=== PATIENT | female | born 1950 | race American Indian/Alaskan Native ===

== ENCOUNTER 2020-08-21 15:29 | Emergency (ER) | payer MEDICARE ==
--- NOTE | 2020-08-21 16:35 | Emergency Department Report ---
ED General Adult HPI - General Chief complaint: Psych Stated complaint: PSYCH EVAL PUI?: No Time Seen by Provider: 08/21/20 16:12 Source: patient, EMS ( EMS documentation not available at time of chart dictation ), RN notes reviewed Mode of arrival: Ambulatory Limitations: Other (The patient is a poor historian) - History of Present Illness Initial comments: The patient was evaluated in the emergency department for symptoms described in the history of present illness. He/she was evaluated in the context of the global COVID-19 pandemic, which necessitated consideration that the patient might be at risk for infection with the virus that causes COVID-19. Institutional protocols and algorithms that pertain to the evaluation of patients at risk for COVID-19 are in a state of rapid change based on information released by regulatory bodies including the CDC and federal and state organizations. These policies and algorithms were followed during the patient's care in the emergency department. Please note that these policies, procedures and recommendations changed on a rapid basis. The patient is a 69-year-old female. She is not known to myself previously. The patient is brought to the hospital by emergency medical services from a local personal fpc. Apparently, the patient ran out of her psychiatric prescriptions a few days ago, and as per verbal report from nursing team, was demonstrating aggressive b ehavior at her personal fpc. She was thus sent to this emergency room. At the moment, patient is not accompanied by friends or family for additional information or collateral information. The patient herself denies headache, neck pain, chest pain, abdominal pain, shortness of breath. She endorses bilateral knee pain, and lower extremity swelling which is nontraumatic, which has been present for "a long time." She denies travel, surgery and immobilization. She indicates the pain is aching, increases with palpation and range of motion and it decreases with rest. She has no recollection of the aforementioned events. To me, the patient complains of wanting to eat and drink, and of her chronic knee pain. Location: left, right, lower extremity Radiation: other Quality: other Consistency: other Improves with: other Worsens with: other Associated Symptoms: other Treatments Prior to Arrival: other - Related Data Home Medications Medication Instructions Recorded Confirmed Last Taken Benztropine [Cogentin] 1 mg PO BID 08/21/20 08/21/20 Unknown Melatonin [Melatonin 10MG CAP] 10 mg PO QHS 10/03/20 10/03/20 Unknown OLANZapine [Zyprexa] 5 mg PO DAILY 08/21/20 08/21/20 Unknown risperiDONE [RisperDAL] 2 mg PO DAILY 08/21/20 08/21/20 Unknown traZODone [Desyrel] 50 mg PO QHS 08/21/20 08/21/20 Unknown Allergies Allergy/AdvReac Type Severity Reaction Status Date / Time Penicillins Allergy Anaphylaxis Verified 08/21/20 15:37 ED Review of Systems ROS: Stated complaint: PSYCH EVAL Other details as noted in HPI Constitutional: denies: fever Eyes: denies: eye discharge ENT: denies: epistaxis Respiratory: denies: cough, shortness of breath Cardiovascular: denies: chest pain Gastrointestinal: denies: abdominal pain, hematemesis, melena, hematochezia Genitourinary: denies: dysuria Musculoskeletal: arthralgia, myalgia Neurological: denies: weakness Psychiatric: denies: homicidal thoughts, suicidal thoughts ED Past Medical Hx - Past Medical History Previous Medical History?: Yes Hx Psychiatric Treatment: Yes (BIPOLAR) - Surgical History Past Surgical History?: No - Social History Smoking Status: Never Smoker Substance Use Type: None - Medications Home Medications: Home Medications Medication Instructions Recorded Confirmed Last Taken Type Benztropine [Cogentin] 1 mg PO BID 08/21/20 08/21/20 Unknown History Melatonin [Melatonin 10MG CAP] 10 mg PO QHS 08/21/20 08/21/20 Unknown History OLANZapine [Zyprexa] 5 mg PO DAILY 08/21/20 08/21/20 Unknown History risperiDONE [RisperDAL] 2 mg PO DAILY 08/21/20 08/21/20 Unknown History traZODone [Desyrel] 50 mg PO QHS 08/21/20 08/21/20 Unknown History ED Physical Exam - General Limitations: No Limitations, Other (The patient is a poor historian) General appearance: alert - Head Head exam: Present: atraumatic, normocephalic - Eye Eye exam: Present: normal appearance, EOMI. Absent: nystagmus - ENT ENT exam: Present: normal exam, normal orophraynx, mucous membranes moist, normal external ear exam - Neck Neck exam: Present: normal inspection, full ROM. Absent: tenderness, meningismus - Respiratory Respiratory exam: Present: normal lung sounds bilaterally. Absent: respiratory distress, wheezes, rales, rhonchi, stridor, decreased breath sounds - Cardiovascular Cardiovascular Exam: Present: regular rate, normal rhythm, normal heart sounds. Absent: bradycardia, tachycardia, irregular rhythm, systolic murmur, diastolic murmur, rubs, gallop - GI/Abdominal GI/Abdominal exam: Present: soft. Absent: distended, tenderness, guarding, rebound, rigid, pulsatile mass - Rectal Rectal exam: Present: deferred - Extremities Exam Extremities exam: Present: normal inspection, full ROM, pedal edema (There is 1+ edema in the bilateral lower extremities), other (There is bilateral knee tenderness on the medial and lateral joint lines of both knees. 2+ pulses noted in the bilateral upper and lower extremities. The muscular compartments are soft. There is otherwise no long bony tenderness, there is no pain with passive range of motion of the toes or ankles.). Absent: calf tenderness - Back Exam Back exam: Present: normal inspection, full ROM. Absent: tenderness, CVA tenderness (R), CVA tenderness (L), paraspinal tenderness, vertebral tenderness - Neurological Exam Neurological exam: Present: alert (Patient is alert to name and location. Does not know the month or the year, "I do not pay attention to that kind of stuff."), other (No facial droop. Tongue midline. Extraocular movements intact bilaterally. Facial sensation intact to light touch in V1, V2, V3 distribution bilaterally. 5 and a 5 strength in 4 extremities. Sensation intact to light touch in 4 extremities.). Absent: motor sensory deficit - Psychiatric Psychiatric exam: Present: anxious. Absent: homicidal ideation, suicidal ideation - Skin Skin exam: Present: warm, dry, intact, normal color. Absent: rash ED Course Vital Signs 08/21/20 08/21/20 15:36 19:53 Temperature 98.0 F 97.8 F Pulse Rate 76 67 Respiratory 17 20 Rate Blood Pressure 144/72 Blood Pressure 137/72 [Left] O2 Sat by Pulse 100 99 Oximetry - Reevaluation(s) Reevaluation #1: 08/21/20 17:12 Differential diagnosis, including but not limited to: Arthritis, dependent edema, renal insufficiency, hepatic insufficiency, congestive heart failure, behavioral concern in an adult patient, medication refill, psychiatric evaluation Assessment and plan: 69-year-old female, who is afebrile with reassuring vital signs, who is alert and oriented to name and location, most likely disorganized secondary to advanced age and probable dementia, who was sent for personal fpc for medication refill of her psychiatric medications, and report of aggressive behavior. On my evaluation, the patient is pleasant, calm and cooperative, alert to name and location, and is not homicidal or suicidal. She does not present as acute crisis. However, given the reports of aggressive behavior, a psychiatric consultation will be obtained. In terms of her leg pain and leg swelling, this is most likely dependent edema, with the knee arthritis. She is not currently tachycardic, tachypneic or hypoxic, she denies DVT and pulmonary embolism risk factors, her d-dimer is negative. Screening laboratory studies ordered, x-ray of the chest negative for CHF, x-ray of the bilateral knees negative for significant findings except arthritis, remainder of screening laboratory studies and psychiatric consultation are pending at this time Reevaluation #2: 08/21/20 17:30 Laboratory studies unremarkable at this time. Psychiatric consultation is pending at this time. Patient does not have an emergent medical condition at this time that would preclude discharge, or outpatient psychiatric follow-up. Please note that it is this provider's practice to not routinely prescribe psychiatric maintenance medications, we can continue them while she is in the emergency room, but she will need to follow-up with her outpatient primary care provider or psychiatrist for refills on her chronic medications 08/21/20 19:17 Patient DVT study is negative. Reevaluation #3: 08/21/20 20:39 As expected, patient has been deemed appropriate for discharge back to her correction by the psychiatric team. She has follow-up with her psychiatrist this Sunday, Dr. Jasmine Patient has been resting comfortably in her stretcher in no acute distress at this time. ED Medical Decision Making - Lab Data Result diagrams: 08/21/20 16:36 08/21/20 16:36 Vital Signs 08/21/20 15:36 Temperature 98.0 F Pulse Rate 76 Respiratory 17 Rate Blood Pressure 144/72 O2 Sat by Pulse 100 Oximetry Lab Results 08/21/20 08/21/20 08/21/20 Range/Units 13:46 16:36 16:36 WBC 6.1 (4.5-11.0) K/mm3 RBC 4.22 (3.65-5.03) M/mm3 Hgb 12.0 (11.8-15.2) gm/dl Hct 35.0 L (35.5-45.6) % MCV 83 L (84-94) fl MCH 29 (28-32) pg MCHC 34 (32-34) % RDW 16.2 H (13.2-15.2) % Plt Count 244 (140-440) K/mm3 PT 13.8 (12.2-14.9) Sec. INR 1.04 (0.87-1.13) APTT 29.7 (24.2-36.6) Sec. D-Dimer 157.50 (0-234) ng/mlDDU Urine Color Yellow (Yellow) Urine Turbidity Clear (Clear) Urine pH 5.0 (5.0-7.0) Ur Specific [place] 1.014 (1.003-1.030) Urine Protein <15 mg/dl (Negative) mg/dL Urine Glucose (UA) Neg (Negative) mg/dL Urine Ketones Neg (Negative) mg/dL Urine Blood Mod (Negative) Urine Nitrite Neg (Negative) Urine Bilirubin Neg (Negative) Urine Urobilinogen < 2.0 (<2.0) mg/dL Ur Leukocyte Esterase Tr (Negative) Urine WBC (Auto) 3.0 (0.0-6.0) /HPF Urine RBC (Auto) 6.0 (0.0-6.0) /HPF U Epithel Cells (Auto) 6.0 (0-13.0) /HPF Urine Mucus Few /HPF Plasma/Serum Alcohol (0-0.07) % 08/21/ Range/Units 16:36 WBC (4.5-11.0) K/mm3 RBC (3.65-5.03) M/mm3 Hgb (11.8-15.2) gm/dl Hct (35.5-45.6) % MCV (84-94) fl MCH (28-32) pg MCHC (32-34) % RDW (13.2-15.2) % Plt Count (140-440) K/mm3 PT (12.2-14.9) Sec. INR (0.87-1.13) APTT (24.2-36.6) Sec. D-Dimer (0-234) ng/mlDDU Urine Color (Yellow) Urine Turbidity (Clear) Urine pH (5.0-7.0) Ur Specific [place] (1.003-1.030) Urine Protein (Negative) mg/dL Urine Glucose (UA) (Negative) mg/dL Urine Ketones (Negative) mg/dL Urine Blood (Negative) Urine Nitrite (Negative) Urine Bilirubin (Negative) Urine Urobilinogen (<2.0) mg/dL Ur Leukocyte Esterase (Negative) Urine WBC (Auto) (0.0-6.0) /HPF Urine RBC (Auto) (0.0-6.0) /HPF U Epithel Cells (Auto) (0-13.0) /HPF Urine Mucus /HPF Plasma/Serum Alcohol < 0.01 (0-0.07) % Laboratory Last Values WBC 6.1 K/mm3 (4.5-11.0) 08/21/20 16:36 RBC 4.22 M/mm3 (3.65-5.03) 08/21/20 16:36 Hgb 12.0 gm/dl (11.8-15.2) 08/21/20 16:36 Hct 35.0 % (35.5-45.6) L 08/21/20 16:36 MCV 83 fl (84-94) L 08/21/20 16:36 MCH 29 pg (28-32) 08/21/20 16:36 MCHC 34 % (32-34) 08/21/20 16:36 RDW 16.2 % (13.2-15.2) H 08/21/20 16:36 Plt Count 244 K/mm3 (140-440) 08/21/20 16:36 PT 13.8 Sec. (12.2-14.9) 08/21/20 16:36 INR 1.04 (0.87-1.13) 08/21/20 16:36 APTT 29.7 Sec. (24.2-36.6) 08/21/20 16:36 D-Dimer 157.50 ng/mlDDU (0-234) 08/21/20 16:36 Sodium 139 mmol/L (137-145) 08/21/20 16:36 Potassium 4.0 mmol/L (3.6-5.0) 08/21/20 16:36 Chloride 101.3 mmol/L (98-107) 08/21/20 16:36 Carbon Dioxide 29 mmol/L (22-30) 08/21/20 16:36 Anion Gap 13 mmol/L 08/21/20 16:36 BUN 19 mg/dL (9-20) 08/21/20 16:36 Creatinine 0.6 mg/dL (0.8-1.3) L 08/21/20 16:36 Estimated GFR > 60 ml/min 08/21/20 16:36 BUN/Creatinine Ratio 32 % 08/21/20 16:36 Glucose 109 mg/dL (75-100) H 08/21/20 16:36 Calcium 9.4 mg/dL (8.4-10.2) 08/21/20 16:36 Magnesium 1.90 mg/dL (1.7-2.3) 08/21/20 16:36 Total Bilirubin 0.30 mg/dL (0.1-1.2) 08/21/20 16:36 AST 18 units/L (5-40) 08/21/20 16:36 ALT 12 units/L (7-56) 08/21/20 16:36 Alkaline Phosphatase 62 units/L (35-129) 08/21/20 16:36 Total Creatine Kinase 159 units/L (55-170) 08/21/20 16:36 Total Protein 7.5 g/dL (6.3-8.2) 08/21/20 16:36 Albumin 3.9 g/dL (3.9-5) 08/21/20 16:36 Albumin/Globulin Ratio 1.1 % 08/21/20 16:36 Urine Color Yellow (Yellow) 08/21/20 13:46 Urine Turbidity Clear (Clear) 08/21/20 13:46 Urine pH 5.0 (5.0-7.0) 08/21/20 13:46 Ur Specific [place] 1.014 (1.003-1.030) 08/21/20 13:46 Urine Protein <15 mg/dl mg/dL (Negative) 08/21/20 13:46 Urine Glucose (UA) Neg mg/dL (Negative) 08/21/20 13:46 Urine Ketones Neg mg/dL (Negative) 08/21/20 13:46 Urine Blood Mod (Negative) 08/21/20 13:46 Urine Nitrite Neg (Negative) 08/21/20 13:46 Urine Bilirubin Neg (Negative) 08/21/20 13:46 Urine Urobilinogen < 2.0 mg/dL (<2.0) 08/21/20 13:46 Ur Leukocyte Esterase Tr (Negative) 08/21/20 13:46 Urine WBC (Auto) 3.0 /HPF (0.0-6.0) 08/21/20 13:46 Urine RBC (Auto) 6.0 /HPF (0.0-6.0) 08/21/20 13:46 U Epithel Cells (Auto) 6.0 /HPF (0-13.0) 08/21/20 13:46 Urine Mucus Few /HPF 08/21/20 13:46 Salicylates < 0.3 mg/dL (2.8-20.0) L 08/21/20 16:36 Acetaminophen 5.0 ug/mL (10.0-30.0) L 08/21/20 16:36 Plasma/Serum Alcohol < 0.01 % (0-0.07) 08/21/20 16:36 - Radiology Data Radiology results: report reviewed, image reviewed interpreted by me: X-ray of the bilateral knees, reviewed by myself, no fracture, no dislocation, DJD is noted. X-ray of the chest, reviewed by myself, no pneumothorax, no infiltrate, slightly rotated portable technique, unremarkable osseous anatomy, chronic lung findings noted Critical care attestation.: If time is entered above; I have spent that time in minutes in the direct care of this critically ill patient, excluding procedure time. ED Disposition Clinical Impression: General medical exam, Behavior concern in adult Knee pain Qualifiers: Chronicity: unspecified Laterality: bilateral Qualified Code(s): M25.561 - Pain in right knee Disposition: DC-01 TO HOME OR SELFCARE Is pt being admited?: No Does the pt Need Aspirin: No Condition: Stable Additional Instructions: Rest, avoid heavy lifting, and avoid strenuous physical activities. Patient may alternate zhpu-coz-[id number] ibuprofen, with [id number] acetaminophen as needed for physical pain. She may also participate in physical therapy which may help alleviate her extremity pain. Patient may also purchase [id number] compression st ockings to assist with lower extremity swelling. Follow-up with your psychiatrist this Sunday as scheduled. Follow-up with your primary care doctor within the next 2 weeks. Please return to the emergency room right away with new pain, worsening, migration of pain, projectile vomiting, change in mental status, confusion, inability to tolerate liquid feeds, new, worsened or different symptoms not present on the initial emergency room evaluation. OUTPATIENT MENTAL HEALTH RESOURCES [facility] Beni Chase MD: [address] [place] [address] [place], [place] [id number] [place] [facility]: [employer] [facility] [address] [place] [address] [place] [address] [phone] [facility]: [facility]: [address] [facility] [place] [address] [facility] [id number] [facility]: Wilber Miranda MD: [address] [facility] [id number] [facility]: [address] [place] [address] [phone] [place] CRISIS AND ACCESS LINE: Referrals: JAYME JOSEPH MD [Primary Care Provider] - 3-5 Days
[2020-08-21 16:49] LABS: Mean Corpuscular HGB Conc 34 % (32-34); Mean Corpuscular Volume 83 fl (84-94); Platelet Count 244 K/mm3 (140-440); Red Blood Count 4.22 M/mm3 (3.65-5.03); Red Cell Distribution Width 16.2 % (13.2-15.2)
[2020-08-21 16:50] LABS: Bilirubin,Urine NEG (Negative); Blood,Urine MOD (Negative); Color,Urine Yellow (Yellow); Mucus,Urine FEW /HPF; Protein,Urine <15 mg/dL mg/dL (Negative); Urobilinogen,Urine < 2.0 mg/dL (<2.0)
[2020-08-21 16:59] LABS: INR 1.04 (0.87-1.13)
[2020-08-21 17:00] LABS: Partial Thromboplastin Time 29.7 Sec. (24.2-36.6)
--- NOTE | 2020-08-21 17:10 | XRay Report ---
CHEST 1 VIEW, 08/21/2020 4:31 PM CLINICAL INFORMATION/INDICATION: Bilateral lower extremity swelling COMPARISON: None. FINDINGS: SUPPORT DEVICES: None. HEART: Cardiac silhouette is upper limits of normal in size. LUNGS/PLEURA: No focal airspace consolidation or significant pleural effusion is visualized. ADDITIONAL FINDINGS: No additional acute findings. IMPRESSION: 1. No evidence of acute cardiopulmonary process. Signer Name: Mansi Purdy MD Signed: 08/21/2020 5:06 PM Workstation Name: [id number]
--- NOTE | 2020-08-21 17:12 | XRay Report ---
EXAMINATION: Bilateral knee radiograph, 2 views, 08/21/2020 CLINICAL INFORMATION: Bilateral knee pain. No history of trauma is given COMPARISON: None. FINDINGS: Right knee: There is advanced bony degenerative change of the right knee with tricompartmental joint space narrowing. There is no evidence of acute fracture or dislocation. No focal soft tissue swelling is identified. Left knee: There is moderate bony degenerative change of the left knee with tricompartmental joint sp vasu narrowing. There is no evidence of acute fracture or dislocation. No focal soft tissue swelling i s identified. IMPRESSION: 1. Moderate to advanced bony degenerative changes of both knees. Signer Name: Mansi Purdy MD Signed: 08/21/2020 5:07 PM Workstation Name: [id number]
[2020-08-21 17:14] LABS: Alanine Aminotransferase 12 units/L (7-56); Albumin 3.9 g/dL (3.9-5); BUN/Creatinine Ratio 32; Blood Urea Nitrogen 19 mg/dL (9-20); Calcium 9.4 mg/dL (8.4-10.2); Hemolysis Index 15
[2020-08-21] MEDS ORDERED: NON-FORMULARY EACH (Risperidone [Risperdal] 2 MG) PO SCH (17:15)
[2020-08-21] MEDS ORDERED: IBUPROFEN 400 MG TAB PO PRN (17:31)
[2020-08-21] MEDS ORDERED: ACETAMINOPHEN 500 MG TAB PO PRN (17:31)
[2020-08-21] MEDS ORDERED: risperiDONE 1 MG TAB PO SCH (18:00)
--- NOTE | 2020-08-21 18:54 | Vascular Lab Report ---
DUPLEX DOPPLER LOWER EXTREMITY VEINS, BILATERAL INDICATION / CLINICAL INFORMATION: lower ext pain swelling. TECHNIQUE: Duplex doppler imaging was performed through the veins of both lower extremities using venous jovany keyur and other maneuvers. COMPARISON: None available. FINDINGS: RIGHT COMMON FEMORAL VEIN: Negative. RIGHT FEMORAL VEIN: Negative. RIGHT POPLITEAL VEIN: Negative. RIGHT CALF VEINS: Negative. LEFT COMMON FEMORAL VEIN: Negative. LEFT FEMORAL VEIN: Negative. LEFT POPLITEAL VEIN: Negative. LEFT CALF VEINS: Negative. ADDITIONAL FINDINGS: None. IMPRESSION: 1. No sonographic evidence for DVT in either lower extremity. Signer Name: Gigi Kim MD Signed: 08/21/2020 6:50 PM Workstation Name: [id number]
[2020-08-21 19:53] VITALS: BP 137/72
[2020-08-21] MEDS ORDERED: BENZTROPINE 1 MG TAB PO SCH (22:00)
[2020-08-21] MEDS ORDERED: traZODone 50 MG TAB PO SCH (22:00)
[2020-08-21] MEDS ORDERED: MELATONIN 5 MG TAB PO SCH (22:00)
== END 2020-08-21 22:01 | disposition home or self-care (01) ==
LOC: EDSEX → ED 15:29
DX: M25.562 Pain in left knee (principal); M25.561 Pain in right knee; F69 Unspecified disorder of adult personality and behavior; Z00.00 Encounter for general adult medical examination without abnormal findings; F31.9 Bipolar disorder, unspecified; Z79.899 Other long term (current) drug therapy; Z88.0 Allergy status to penicillin
CPT/HCPCS: 36415; 71045; 80053; 80320; 81001; 82550; 83735; 85027; 85379; 85610; 85730; 93970; G0480